=== PATIENT | male | born 1990 ===

== ENCOUNTER 2018-11-25 10:35 | Emergency (ER) | payer OTHER ==
[~2018-11-25] VITALS: Ht 172.7 cm; Wt 90.7 kg
[2018-11-25] MEDS ORDERED: PRED20 PO (11:01)
== END 2018-11-25 11:55 | disposition home or self-care (01) ==
LOC: ER 10:35
DX: M62.830 Muscle spasm of back (principal); Z88.2 Allergy status to sulfonamides; Z87.891 Personal history of nicotine dependence
CPT/HCPCS: 96372; 99283-25; A9270-GY; J1885